=== PATIENT | female | born 1955 | race Caucasian/White ===

== ENCOUNTER 2018-04-12 20:27 | Observation (INO) | payer SELFPAY ==
[2018-04-12] MEDS ORDERED: Acetaminophen 500 MG TAB ONE (20:36)
[2018-04-12] MEDS ORDERED: Acetaminophen 325 MG TAB PO PRN (22:28)
[2018-04-12 22:51] VITALS: BMI 42.8
[2018-04-12] MEDS ORDERED: Lisinopril 5 MG TAB PO SCH (23:00)
[2018-04-12] MEDS ORDERED: Pravastatin Sodium 20 MG TAB PO SCH (23:00)
[2018-04-12] MEDS ORDERED: Spironolactone 25 MG TAB PO SCH (23:00)
[2018-04-12] MEDS ORDERED: Clopidogrel Bisulfate 75 MG TAB PO SCH (23:00)
[2018-04-13 00:07] LABS: Troponin I Less than 0.010 ng/mL (< 0.028)
--- NOTE | 2018-04-13 01:56 | HP ---
CHIEF COMPLAINT: Chest pain. HISTORY OF PRESENT ILLNESS: This patient is a 62-year-old female with a history of a prior [place] with heart catheterization and stent about [address] Mccollum. The patient has continued to follow with Dr. Mccollum. She had last saw him about 2 years ago. She states she had a heart catheterization at that time. She is not exactly sure of the results, but at one point, felt that he told her there was something that could still be an issue for her at some point in the future. The patient is primarily followed by [facility]. 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 She stopped and ate at [facility] and subsequently developed pain in the central sternal chest area. She states that it was not severe and rated it at 3/10 to 4/10, but she had some associated palpitations, significant amount of nausea and shortness of breath. She also had pain in her neck and head area, but has some chronic neck pain. She describes the pain as electrical shock in nature, so she took nitroglycerin and did not have any relief, so she took a 2nd one and on that did not resolve it. They headed to emergency department in [place] the patient reports that she currently still has some nausea and what she describes is some minimal tightness in her chest, but otherwise the pain aspect has fully resolved. REVIEW OF SYSTEMS: GENERAL: She has no issues with her weight or sleep patterns. No fevers or chills. ENT: No hearing, vision, taste, or smell abnormalities. GI: Occasionally feels like she has to swallow hard, but no problems otherwise. No diarrhea or constipation. CARDIOVASCULAR: As above, some chest pain and palpitation. She also reports that she frequently has edema in her legs. PULMONARY: She had the associated shortness of breath and occasionally has some wheezing, which she attributes to her smoking. Denies cough. : Denies dysuria, frequency, nocturia, incontinence. SKIN: Denies lesions or rashes. NEUROLOGIC: The patient has some tingling and numbness in her hands and feet from time to time. No generalized weakness. PSYCH: She has some occasional mild anxiety. No depression. ENDOCRINE: No polyuria or polydipsia. The remainder of the systems were reviewed and all pertinent positives and negatives noted in the HPI. PAST MEDICAL HISTORY: The patient has prior [place] and stent about [address] Mccollum. She reports heart catheterization 2 years ago, although she is not entirely sure what the results were. She know she did not have any intervention at that time. She also was admitted here in June of 2016, during which time she underwent an echocardiogram and a stress test, both of which were normal. The patient has, 1. Chronic neck pain. 2. Chronic knee pain. 3. Hypertension. 4. Hyperlipidemia. 5. Borderline diabetes. PAST SURGICAL HISTORY: and bilateral tubal ligation. FAMILY HISTORY: Notable for heart disease and cancer on both sides of the family as well as diabetes. She also had a brother who of cancer in his 20s. SOCIAL HISTORY: The patient continues to smoke half a pack of cigarettes per day. She reports that she did have alcohol use in the past, but does not anymore. Denies drugs. She is . She is full code and her , Omar, would be her surrogate decision maker. Also of note, the patient reports that she quit working about 3 weeks ago because she feels too debilitated by her chronic pain especially in her legs. ALLERGIES: PENICILLIN. SHE DOES NOT KNOW WHAT HER ALLERGY IS. SHE WAS JUST TOLD THAT IN CHILDHOOD. CURRENT MEDICATIONS: The patient is not entirely sure about the dosing amounts on these medicines, but the list includes; 1. Metoprolol 25 mg one p.o. at bedtime. 2. Aldactone 25 mg p.o. at bedtime. 3. Lisinopril 5 mg at bedtime. 4. Pravastatin 20 mg at bedtime. 5. Sublingual nitroglycerin p.r.n. 6. Aspirin 81 mg at bedtime. 7. Plavix 75 mg p.o. at bedtime. PHYSICAL EXAMINATION: VITAL SIGNS: BP 115/68, pulse 68, respirations 20, temp 98.4, O2 saturation 97 % on room air. GENERAL APPEARANCE: The patient is an age-appropriate female. She is morbidly obese. She is awake, alert, oriented, pleasant, and cooperative. HEENT: PERRL. No OP lesions. NECK: Supple and symmetric without lymphadenopathy, JVD, or bruits. HEART: Regular rate and rhythm without murmurs, gallops, or rubs. LUNGS: Clear to auscultation bilaterally with good chest wall expansion and air exchange. ABDOMEN: Soft, flat, nontender, and nondistended. Positive bowel sounds. No masses. No organomegaly. EXTREMITIES: Warm and dry. No cyanosis, clubbing, or edema. NEUROLOGIC: The patient is intact with no focal deficits. PSYCHIATRIC: The patient has normal affect and behavior. IMAGING STUDIES: EKG shows normal sinus rhythm, 72 beats per minute without any ischemic changes. LABORATORY DATA: White count 9.9, hemoglobin 14.4, platelets 248. D-dimer is less than 0.27. Sodium 143, potassium 4.2, chloride 107, CO2 of 26, BUN 15, creatinine 0.83, glucose 167, calcium 9.4. LFTs normal. Chest x-ray negative. Troponin was less than 0.01. IMPRESSION AND PLAN: 1. Chest pain. The patient with a history of coronary artery disease. The patient has undergone prior workup including heart catheterization 2 years ago, although she is not entirely sure of the results. She did not have intervention. She also had a normal stress test and echocardiogram in June of 2016. Her symptoms today started after eating barbecue and certainly possible that this is purely GI related. She does not have evidence of cholecystitis. We will keep the patient on telemetry. Continue to trend her troponins. We will keep her on H2 antagonist and anticipates needing to call Dr. Mccollum in the morning to determine if this patient had a negative heart catheterization previously. The patient has not tolerated stress test well in the past and is hesitant to pursue doing that again at this time. Therefore, we will try to communicate with Dr. Mccollum prior to ordering another stress test at this time. 2. Hypertension. Continue with her lisinopril, metoprolol, and Aldactone. 3. Hyperlipidemia. Continue with the pravastatin. 4. History of coronary artery disease. Continue with the Plavix and aspirin. 5. History of borderline diabetes. Blood sugar is very slightly elevated. This is being monitored for as an outpatient. We will order Accu-Cheks and not institute sliding scale as of yet. Job ID: [id number] [facility]
[2018-04-13 06:48] LABS: Troponin I Less than 0.010 ng/mL (< 0.028)
[2018-04-13] MEDS ORDERED: hydrALAZINE 20 MG/ML VIAL SLOW IVP PRN (07:40)
[2018-04-13] MEDS ORDERED: Loratadine 10 MG TAB PO PRN (07:40)
[2018-04-13] MEDS ORDERED: Diabetic Tussin 200 MG/10 ML UDCUP PO PRN (07:40)
[2018-04-13] MEDS ORDERED: Senokot S 8.6-50 MG TAB PO PRN (07:40)
[2018-04-13] MEDS ORDERED: Loperamide HCl 2 MG CAP PO PRN (07:40)
[2018-04-13] MEDS ORDERED: Nitroglycerin 0.4 MG TAB (25 Tab Bottle) SL PRN (07:40)
[2018-04-13] MEDS ORDERED: Artificial Tears 18 DROP/0.9 ML EA EYE PRN (07:40)
[2018-04-13] MEDS ORDERED: Eucerin (Mineral Oil/Petrolatum,White) 30 gm Jar TOP PRN (07:40)
[2018-04-13] MEDS ORDERED: Zolpidem Tartrate 5 MG TAB PO PRN (07:40)
[2018-04-13] MEDS ORDERED: HYDROcodone/Acetaminophen 5/325 mg Tablet PO PRN (07:40)
[2018-04-13] MEDS ORDERED: Sodium Chloride 0.65% Nasal 44 ML BOT EA NARE PRN (07:40)
[2018-04-13] MEDS ORDERED: Cepastat Lozenges 1 LOZ PO PRN (07:40)
[2018-04-13] MEDS ORDERED: Calcium Carbonate 500 MG ChewTAB PO PRN (07:40)
[2018-04-13] MEDS ORDERED: Famotidine 20 MG TAB PO SCH (09:00)
--- NOTE | 2018-04-13 11:30 | PDOC.PN ---
- Subjective Encounter Start Date: 04/13/18 Encounter Start Time: 08:00 -: old records requested/rev Patient seen and examined. No new complaints. No overnight events - Objective Resuscitation Status - Order Detail: 04/12/18 22:28 Resuscitation Status Routine Resuscitation Status: FULL: Full Resuscitation MAR Reviewed: Yes Vital Signs & Weight: Vital Signs (12 hours) Temp Pulse Resp BP Pulse Ox 04/13/18 07:50 97.6 F 67 16 133/63 95 04/13/18 04:12 97.9 F 69 14 126/58 L 96 04/12/18 23:33 55 L Weight Weight 226 lb 12.8 oz I&O: 04/12/18 04/13/18 04/14/18 06:59 06:59 06:59 Intake Total 275 Output Total 300 Balance -25 Additional Labs: Accuchecks 04/13/18 04:15 POC Glucose 124 H EKG Reviewed by me: Yes (nsr) Phys Exam - Physical Examination Constitutional: NAD HEENT: PERRLA, moist MMs, sclera anicteric Neck: no JVD, supple Respiratory: no wheezing, no rales, no rhonchi Cardiovascular: RRR, no significant murmur, no rub Gastrointestinal: soft, non-tender, no distention, positive bowel sounds Musculoskeletal: no edema, pulses present Neurological: non-focal, normal sensation, moves all 4 limbs Lymphatic: no nodes Psychiatric: normal affect, A&O x 3 Skin: no rash, normal turgor Dx/Plan (1) Chest pain Code(s): R07.9 - CHEST PAIN, UNSPECIFIED Status: Acute (2) CAD (coronary artery disease) Code(s): I25.10 - ATHSCL HEART DISEASE OF [place] CORONARY ARTERY W/O ANG PCTRS Status: Chronic (3) Chronic pain Code(s): G89.29 - OTHER CHRONIC PAIN Status: Chronic (4) Dyslipidemia Code(s): E78.5 - HYPERLIPIDEMIA, UNSPECIFIED Status: Chronic (5) Hypertension Code(s): I10 - ESSENTIAL (PRIMARY) HYPERTENSION Status: Chronic (6) Morbid obesity with BMI of 40.0-44.9, adult Code(s): E66.01 - MORBID (SEVERE) OBESITY DUE TO EXCESS CALORIES; Z68.41 - BODY MASS INDEX (BMI) 40.0-44.9, ADULT Status: Chronic - Plan cont current plan of care * pt request cardiology consult and she agreed with intervention if needed * medication reviewed as below * symptomatic treatment. Review of Systems - Review of Systems ENT: negative: Ear Pain, Ear Discharge, Nose Pain, Nose Discharge, Nose Congestion, Mouth Pain, Mouth Swelling, Throat Pain, Throat Swelling, Other Respiratory: negative: Cough, Dry, Shortness of Breath, Hemoptysis, SOB with Excertion, Pleuritic Pain, Sputum, Wheezing Cardiovascular: negative: chest pain, palpitations, orthopnea, paroxysmal nocturnal dyspnea, edema, light headedness, other Gastrointestinal: negative: Nausea, Vomiting, Abdominal Pain, Diarrhea, Constipation, Melena, Hematochezia, Other Genitourinary: negative: Dysuria, Frequency, Incontinence, Hematuria, Retention , Other Musculoskeletal: negative: Neck Pain, Shoulder Pain, Arm Pain, Back Pain, Hand Pain, Leg Pain, Foot Pain, Other Skin: negative: Rash, Lesions, Ben, Bruising, Other - Medications/Allergies Allergies/Adverse Reactions: Allergies Allergy/AdvReac Type Severity Reaction Status Date / Time Penicillins Allergy Verified 04/12/18 23:09 Medications: Current Medications Acetaminophen (Tylenol) 650 mg PO Q4H PRN PRN Reason: Headache/Fever/Mild Pain (1-3) Hydrocodone Bitart/Acetaminophen ([place] 5/325) 1 tab PO Q4H PRN PRN Reason: Moderate Pain (4-6) Artificial Tears (Tears Naturale) 2 drop EA EYE PRN PRN PRN Reason: Dry Eyes Calcium Carbonate (Tums) 1,000 mg PO Q4H PRN PRN Reason: Heartburn or Indigestion Clopidogrel Bisulfate (Plavix) 75 mg PO QPM [facility] Famotidine (Pepcid) 20 mg PO BID [facility] Last Admin: 04/13/18 09:57 Dose: 20 mg Guaifenesin (Robitussin Sf) 200 mg PO Q4H PRN PRN Reason: Cough Hydralazine HCl (Apresoline) 10 mg SLOW IVP Q4H PRN PRN Reason: SBP > 180 and HR < 70 Lisinopril (Zestril) 5 mg PO QPM [facility] Loperamide HCl (Imodium) 2 mg PO PRN PRN PRN Reason: Diarrhea/Loose Stools Loratadine (Claritin) 10 mg PO DAILYPRN PRN PRN Reason: Sinus Symptoms Mineral Oil/White Petrolatum (Eucerin Cream) 0 gm TOP BIDPRN PRN PRN Reason: Dry Skin Nitroglycerin (Nitrostat) 0.4 mg SL Q5MIN PRN PRN Reason: Chest Pain Pravastatin Sodium (Pravachol) 20 mg PO HS DORIAN Senna/Docusate Sodium (Senokot S) 2 tab PO BID PRN PRN Reason: Constipation Sodium Chloride ([place] Nasal [place] 0.65%) 0 ml EA NARE QIDPRN PRN PRN Reason: Nasal Congestion Spironolactone (Aldactone) 25 mg PO QPM DORIAN Throat Lozenges (Cepastat Lozenges) 1 sahara PO Q2H PRN PRN Reason: Sore Throat Zolpidem Tartrate (Ambien) 5 mg PO HSPRN PRN PRN Reason: Insomnia
[2018-04-13 12:39] VITALS: BP 120/64; TEMP 97
--- NOTE | 2018-04-13 15:20 | DIS ---
DATE OF ADMISSION: 04/12/2018 DATE OF DISCHARGE: 04/13/2018 PRIMARY CARE PHYSICIAN: Dr. Inge Gutierrez. DISCHARGE DISPOSITION: Home. PRIMARY DISCHARGE DIAGNOSIS: Chest pain, ruled out acute coronary syndrome. SECONDARY DISCHARGE DIAGNOSES: Coronary artery disease, chronic pain, dyslipidemia, hypertension, morbid obesity with body mass index of 42. PRIMARY PROCEDURE/OPERATION: None. RADIOLOGICAL INVESTIGATION: Chest x-ray was normal. SIGNIFICANT LABORATORY DATA: Cardiac enzymes negative x3. CBC and BMP unremarkable. DISCHARGE MEDICATIONS: 1. [place] 5 one or two tablets q.4 hourly p.r.n. 2. Nitroglycerin 0.4 mg sublingual p.r.n. 3. Plavix 75 mg daily. 4. Lisinopril 5 mg p.o. at bedtime. 5. Metoprolol 25 mg p.o. daily. 6. Pravastatin 40 mg p.o. at bedtime. 7. Aldactone 25 mg daily. 8. Aspirin 81 mg daily. 9. Imdur 30 mg p.o. daily. CONTRAINDICATION: None. CODE STATUS: Full code. INPATIENT MEDICAL PHYSICS RESEARCHER: Dr. Washington was consulted while in hospital. TEST RESULTS PENDING ON DISCHARGE: None. ALLERGIES: PENICILLIN. DISCHARGE PLAN: Posthospital, the patient will follow up with primary care physician in 1 week. HOSPITAL COURSE: A 62-year-old female, who has above-mentioned medical problem, who was admitted by Dr. Krause. Please see his H and P for further details. The patient was presented with chest pain. Her chest pain description was atypical. During this admission, we consulted Cardiology, and Cardiology evaluated this patient and recommended discharge and outpatient followup with her own automated process operator. To optimize her coronary artery disease, we added Imdur during this admission. This patient is instructed to follow up with her automated process operator for possible further evaluation as an outpatient basis. This patient did not want to go for any cardiac stress testing during this admission and she already had most recent stress testing done in June 2016 and that is why we did not pursue more investigation during this admission. The patient is seen and examined at bedside today. Please see my progress note from today for further detail. Job ID: [id number]
--- NOTE | 2018-04-13 17:33 | CON ---
DATE OF CONSULTATION: 04/13/2018 REASON FOR CONSULTATION: Chest pain. HISTORY OF PRESENT ILLNESS: Ms. Tomlin is a pleasant 62-year-old woman, who is a patient of Dr. Balta Mccollum. She gives a history of having stent placement. She also states she underwent coronary angiography 2 years ago and was found to have patent stent. No intervention recommended. She also underwent noninvasive stress study last year, which was felt to be negative for ischemia. She re-presented with acute onset chest pain. This occurred after eating barbecue. This slowly resolved. No further symptoms were present. She presented to emergency room with the above. She is currently asymptomatic. PAST MEDICAL HISTORY: CAD, status post stent placement, ?diabetes mellitus, hypertension, hyperlipidemia, knee pain, neck pain. SURGICAL HISTORY: BTL, . ALLERGIES: PENICILLIN. MEDICATIONS: Reviewed. PHYSICAL EXAMINATION: GENERAL: The patient is a pleasant female, who is in no acute distress. The patient appears their stated age. VITAL SIGNS: Blood pressure 130/64, pulse 77, temperature 97. NEUROLOGIC: The patient is alert and oriented x3 with no focal neurologic deficits. HEENT: Sclerae without icterus. Mouth has moist mucous membranes with normal pallor. NECK: No JVD. Carotid upstroke brisk. No bruits bilaterally. LUNGS: Clear to auscultation with unlabored respirations. BACK: No scoliosis or kyphosis. CARDIAC: Regular rate and rhythm with normal S1 and S2. No S3 or S4 noted. No significant rubs, murmurs, thrills, or gallops noted throughout the precordium. PMI is not displaced. There is no parasternal heave. ABDOMEN: Soft, nontender, nondistended. No peritoneal signs present. No hepatosplenomegaly. No abnormal striae. EXTREMITIES: 2+ femoral and 2+ dorsalis pedis pulses. No cyanosis, clubbing, or edema. SKIN: No gross abnormalities. PERTINENT LABORATORY DATA: CK troponin negative. EKG normal sinus rhythm with no acute findings. IMPRESSION: 1. Acute onset chest pain. 2. Coronary artery disease. 3. Status post stent placement. RECOMMENDATIONS: Ms. Tomlin is currently pain-free. Her enzymes and EKG were within normal limits. Her symptoms are atypical. She recently underwent coronary angiography 2 years ago with no significant stenosis per patient. She also underwent a noninvasive stress study last year with no significant ischemia. At this point, recommend medical therapy. I would continue aspirin and Plavix. May also benefit from low-dose Imdur at 30 mg 1 p.o. q.a.m. Recommend she follow up with Dr. Mccollum in the next 1 to 2 weeks. Job ID: [id number] [facility]
[2018-04-13] MEDS ORDERED: Spironolactone 25 MG TAB PO SCH (21:00)
[2018-04-13] MEDS ORDERED: Clopidogrel Bisulfate 75 MG TAB PO SCH (21:00)
[2018-04-13] MEDS ORDERED: Pravastatin Sodium 20 MG TAB PO SCH (21:00)
[2018-04-13] MEDS ORDERED: Lisinopril 5 MG TAB PO SCH (21:00)
--- NOTE | 2018-04-18 12:26 | EKG ---
Test Reason : Blood Pressure : / mmHG Vent. Rate : 072 BPM Atrial Rate : 072 BPM P-R Int : 160 ms QRS Dur : 074 ms QT Int : 398 ms P-R-T Axes : 052 084 038 degrees QTc Int : 435 ms Normal sinus rhythm Normal ECG Confirmed by NOHELIA FLORES ([id number]), video effects editor TI RUIZ ([id number]) on 04/18/2018 12:26:29 PM Referred By: Confirmed By:NOHELIA FLORES
== END 2018-04-13 15:37 | disposition home or self-care (01) ==
LOC: ERS 20:27 → 2SW 20:40
PROVIDERS: ADMIT Internal Medicine; ATTEND Internal Medicine
DX: R07.89 Other chest pain (principal); I25.10 Atherosclerotic heart disease of native coronary artery without angina pectoris; E78.5 Hyperlipidemia, unspecified; I10 Essential (primary) hypertension; I25.2 Old myocardial infarction; G89.29 Other chronic pain; M54.2 Cervicalgia; M25.569 Pain in unspecified knee; E11.9 Type 2 diabetes mellitus without complications; E66.01 Morbid (severe) obesity due to excess calories; Z68.41 Body mass index [BMI] 40.0-44.9, adult; Z88.0 Allergy status to penicillin; Z95.5 Presence of coronary angioplasty implant and graft; Z79.02 Long term (current) use of antithrombotics/antiplatelets; Z79.82 Long term (current) use of aspirin; Z79.899 Other long term (current) drug therapy
CPT/HCPCS: 36415; 36416; 84484; 90471; 90686; 90732; 93005; G0008; G0009; G0378

== ENCOUNTER 2022-07-05 16:49 | Emergency (ER) | payer SELFPAY ==
[2022-07-05 17:51] LABS: #Lymphocytes 0.6 thou/uL (1.20-3.40); #Monocytes 0.9 thou/uL (0.11-0.59); #Neutrophils 11.2 thou/uL (1.40-6.50); %Basophils 0.1 % (0.0-1.0); %Eosinophils 0.3 % (0.0-10.0); %Lymphocytes 4.8 % (21.0-51.0); %Monocytes 6.7 % (0.0-10.0); %Neutrophils 88.2 % (42.0-75.0); Hemoglobin 13.9 g/dL (12.0-16.0); Mean Corpuscular HGB CONC 33.7 g/dL (32.0-36.0); Mean Corpuscular Hemoglobin 33.4 pg (27.0-31.0); Mean Corpuscular Volume 99.1 fl (78.0-98.0); Mean Platelet Volume 9.1 fL (7.4-10.4); Platelet Count 175 10x3/uL (130-400); RBC Distribution Width 12.1 % (11.5-14.5); Red Blood Cell (RBC) Count 4.16 mill/uL (4.20-5.40); White Blood Cell (WBC) Count 12.7 10x3/uL (4.8-10.8)
[2022-07-05 18:12] LABS: ALT (SGPT) 16 U/L (8-55); AST (SGOT) 15 U/L (5-34); Albumin 4.2 g/dL (3.4-4.8); Alkaline Phosphatase 88 U/L (40-110); Anion Gap 15 mmol/L (10-20); BUN (Urea Nitrogen) 11 mg/dL (9.8-20.1); Bilirubin, Total 0.7 mg/dL (0.2-1.2); CK (CPK) 86 U/L (29-168); Calc. Creatinine Clearance 0 mL/min (70-130); Calcium 9.2 mg/dL (7.8-10.44); Carbon Dioxide 20 mmol/L (23-31); Chloride 103 mmol/L (98-107); Estimated GFR 90; Globulin 3.2 g/dL (2.4-3.5); Glucose 127 mg/dL (80-115); Lipase 18 U/L (8-78); Potassium 4.3 mmol/L (3.5-5.1); Protein, Total 7.4 g/dL (5.8-8.1); Sodium 134 mmol/L (136-145)
[2022-07-05 20:30] LABS: Bacteria/HPF None Seen HPF (None Seen); Bilirubin Negative (Negative); Blood, Urine Negative (Negative); Clarity Clear (Clear); Glucose, Urine (Dipstick) Normal (Negative); Ketone, Urine Negative (Negative); Leukocyte 75 Leu/uL (Negative); Nitrite Negative (Negative); Protein, Urine (Dipstick) Negative (Neg-Trace); RBC/HPF 0-3 HPF (0-3); Specific Gravity, Urine 1.004 (1.002-1.036); Squamous Epithelial 0-3 HPF (0-3); Urobilinogen Normal mg/dL (Less than 2); WBC/HPF 0-3 HPF (0-3)
[2022-07-05 20:57] LABS: SARS-CoV-2 NAA Rapid Test Not Detected (NotDetected)
== END 2022-07-05 21:31 | disposition home or self-care (01) ==
LOC: ERS 16:49
DX: R50.9 Fever, unspecified (principal); R05.9 Cough, unspecified; D72.829 Elevated white blood cell count, unspecified; E78.5 Hyperlipidemia, unspecified; I10 Essential (primary) hypertension; F17.210 Nicotine dependence, cigarettes, uncomplicated; Z79.899 Other long term (current) drug therapy; Z79.82 Long term (current) use of aspirin; Z20.822 Contact with and (suspected) exposure to COVID-19
CPT/HCPCS: 36415; 71045; 81003; 81015; 82550; 83605; 83690; 83880; 84484; 87040; 93005; 93970; 96360; 96361

== ENCOUNTER 2023-10-17 06:12 | Day surgery (SDC) | payer MEDICARE ==
[2023-10-14 14:58] VITALS: BMI 39.6
[2023-10-17] MEDS ORDERED: Lidocaine 4% Topical Sol 50 ML BOT ONE (06:34)
[2023-10-17] MEDS ORDERED: fentaNYL 50 mcg/mL 1 mL Vial ONE (06:41)
[2023-10-17] MEDS ORDERED: Propofol 1,000 MG/100 ML VIAL IV ONE (06:41)
[2023-10-17] MEDS ORDERED: Lidocaine 2% 6 ML (Jelly) SYR ONE (06:41)
[2023-10-17] MEDS ORDERED: Heparin 10,000 UNITS/ 10 ML VIAL ONE (06:54)
[2023-10-17] MEDS ORDERED: Protamine Sulfate 50 MG/5 ML VIAL ONE (06:54)
[2023-10-17] MEDS ORDERED: Phenylephrine 10 MG/ML VIAL ONE (06:55)
[2023-10-17 07:18] LABS: #Basophils 0.09 10x3/uL (0.0-0.2); %Basophils 0.9 % (0.0-1.0); %Eosinophils 3.2 % (0.0-10.0); %Lymphocytes 22.3 % (21.0-51.0); %Monocytes 7.8 % (0.0-10.0); %Neutrophils 65.1 % (42.0-75.0); Hematocrit 42.5 % (36.0-47.0); Hemoglobin 14.6 g/dL (12.0-16.0); Mean Corpuscular HGB CONC 34.4 g/dL (32.0-36.0); Mean Corpuscular Volume 98.8 fL (78.0-98.0); Mean Platelet Volume 12.5 fL (7.4-10.4); Platelet Count 234 10x3/uL (130-400); RBC Distribution Width 13.3 % (11.5-14.5)
[2023-10-17] MEDS ORDERED: Rocuronium Bromide 10 MG/ML (10ML VIAL) ONE (07:37)
[2023-10-17] MEDS ORDERED: PROPOFOL 20 ML ONE (07:37)
[2023-10-17] MEDS ORDERED: SUGAMMADEX SODIUM 200 MG/2 ML VIAL ONE (07:38)
[2023-10-17] MEDS ORDERED: Dexamethasone 4 mg/ml Vial ONE (07:39)
[2023-10-17] MEDS ORDERED: Ondansetron PF 4 MG/2 ML Vial ONE (07:39)
[2023-10-17 08:03] LABS: Anion Gap 17 mmol/L (10-20); BUN (Urea Nitrogen) 21 mg/dL (9.8-20.1); Calc. Creatinine Clearance 91 mL/min (70-130); Calcium 9.6 mg/dL (7.8-10.44); Carbon Dioxide 20 mmol/L (23-31); Chloride 107 mmol/L (98-107); Estimated GFR 70; Glucose 118 mg/dL (80-115); Potassium 4.2 mmol/L (3.5-5.1); Sodium 140 mmol/L (136-145)
[2023-10-17 08:36] LABS: INR-International Normal Ratio 1.2; PTT 36.5 sec (22.9-36.1); Prothrombin Time 14.9 sec (12.0-14.7)
[2023-10-17] MEDS ORDERED: Isoproterenol 0.2 MG/1 ML AMP ONE (08:56)
[2023-10-17] MEDS ORDERED: fentaNYL PF 100 MCG/2 ML SYRINGE ONE (10:12)
[2023-10-17] MEDS ORDERED: HYDROmorphone 0.5 MG/0.5 ML SYRINGE ONE (10:22)
== END 2023-10-17 13:30 | disposition home or self-care (01) ==
LOC: SDC 06:12
PROVIDERS: ATTEND Internal Medicine Cardiovascular Disease
PROC: 02583ZZ Destruction of Conduction Mechanism, Percutaneous Approach (ICD-10-PCS; principal; 2023-10-17)
PROC: 02K83ZZ Map Conduction Mechanism, Percutaneous Approach (ICD-10-PCS; 2023-10-17)
DX: I48.0 Paroxysmal atrial fibrillation (principal); I47.10 Supraventricular tachycardia, unspecified; I25.10 Atherosclerotic heart disease of native coronary artery without angina pectoris; E66.01 Morbid (severe) obesity due to excess calories; Z68.39 Body mass index [BMI] 39.0-39.9, adult; Z88.0 Allergy status to penicillin; F17.210 Nicotine dependence, cigarettes, uncomplicated; Z98.890 Other specified postprocedural states; Z79.899 Other long term (current) drug therapy
CPT/HCPCS: 80048; 85025; 85610; 85730; 93005; 93653; C1730; C1732; C1760; C1894; C2630; J1100; J1170; J1644; J2371; J2405; J2704; J3010; 93613; 93621; 93622; 93623; J2720

== ENCOUNTER 2025-03-13 07:49 | Outpatient (CLI) | payer OTHER ==
[2025-03-13 08:25] LABS: Estimated GFR - POC 55.0
[2025-03-13] MEDS ORDERED: Iopamidol 370 76% 100 ML VIAL ONE (09:29)
== END 2025-03-13 07:50 | disposition home or self-care (01) ==
LOC: CT 07:49
PROVIDERS: ATTEND Internal Medicine Cardiovascular Disease
DX: R09.89 Other specified symptoms and signs involving the circulatory and respiratory systems (principal); I70.90 Unspecified atherosclerosis; I65.23 Occlusion and stenosis of bilateral carotid arteries
CPT/HCPCS: 36415; 70498; 82565